=== PATIENT | male | born 1995 | race Caucasian/White ===

== ENCOUNTER 2021-03-29 13:37 | Emergency (ER) | payer OTHER ==
[~2021-03-29] VITALS: Ht 193 cm; Wt 91.8 kg
[2021-03-29 21:00] LABS: BASO % 0.4 % (0.0-1.0); EOS # 0.1 10^3/uL (0.0-0.5); EOS % 1.6 % (0.0-3.0); HEMATOCRIT 43.6 % (42.0-52.0); HEMOGLOBIN 14.5 g/dl (13.5-17.5); LYMPH # 1.6 10^3/uL (1.5-5.0); LYMPH % 22.4 % (24.0-44.0); MEAN CORPUSCULAR HEMOGLOBIN 30.3 pg (27.0-33.0); MEAN CORPUSCULAR HGB CONC 33.3 g/dl (32.0-36.5); MEAN CORPUSCULAR VOLUME 91.2 fl (80.0-96.0); MONO # 0.8 10^3/uL (0.0-0.8); MONO % 11.4 % (2.0-8.0); NEUTROPHILS # 4.6 10^3/uL (1.5-8.5); NEUTROPHILS % 63.8 % (36.0-66.0); PLATELET COUNT, AUTOMATED 237 10^3/uL (150-450); RED BLOOD COUNT 4.78 10^6/uL (4.30-6.10); WHITE BLOOD COUNT 7.3 10^3/uL (4.0-10.0)
--- NOTE | 2021-03-29 21:00 | REPVR ---
PROCEDURE INFORMATION: Exam: CT Abdomen And Pelvis Without Contrast Exam date and time: 03/29/2021 8:31 PM Age: 25 years old Clinical indication: Abdominal pain; Additional info: Flank pain/tenderness base liver TECHNIQUE: Imaging protocol: Computed tomography of the abdomen and pelvis without contrast. Radiation optimization: All CT scans at this facility use at least one of these dose optimization techniques: automated exposure control; mA and/or kV adjustment per patient size (includes targeted exams where dose is matched to clinical indication); or iterative reconstruction. COMPARISON: No relevant prior studies available. FINDINGS: Liver: Normal. No mass. Gallbladder and bile ducts: Normal. No calcified stones. No ductal dilation. Pancreas: Normal. No ductal dilation. Spleen: Normal. No splenomegaly. Adrenal glands: Normal. No mass. Kidneys and ureters: Normal. No hydronephrosis. Stomach and bowel: There is increased feces throughout the colon consistent with constipation. Appendix: No evidence of appendicitis. Intraperitoneal space: Unremarkable. No free air. No significant fluid collection. Vasculature: Unremarkable. No abdominal aortic aneurysm. Lymph nodes: Unremarkable. No enlarged lymph nodes. Urinary bladder: Unremarkable as visualized. Reproductive: Unremarkable as visualized. Bones/joints: Unremarkable. No acute fracture. Soft tissues: Unremarkable. IMPRESSION: There is increased feces throughout the colon consistent with constipation. Electronically signed by: Bryon Guan On 03/29/2021 20:59:30 PM
[2021-03-29 21:27] LABS: ALBUMIN 4.3 GM/DL (3.2-5.2); ALT/SGPT 27 U/L (12-78); BILIRUBIN,DIRECT 0.1 MG/DL (0.0-0.2); BILIRUBIN,TOTAL 0.6 MG/DL (0.2-1.0); LIPASE 75 U/L (73-393)
[2021-03-29 21:45] VITALS: BP 123/74
[2021-03-29 21:50] LABS: HEPATITIS B SURFACE ANTIGEN NEGATIVE (NEGATIVE)
[2021-03-29] MEDS ORDERED: MIRA3350 PO (22:04)
[2021-03-29 22:07] LABS: BLOOD UREA NITROGEN 13 MG/DL (7-18); CALCIUM LEVEL 9.6 MG/DL (8.5-10.1); CARBON DIOXIDE LEVEL 30 MEQ/L (21-32); CHLORIDE LEVEL 104 MEQ/L (98-107); CREATININE FOR GFR 1.12 MG/DL (0.70-1.30); GLOMERULAR FILTRATION RATE > 60.0 (>60); GLUCOSE, FASTING 89 MG/DL (70-100); POTASSIUM SERUM 4.2 MEQ/L (3.5-5.1); SODIUM LEVEL 140 MEQ/L (136-145)
[2021-03-29 22:17] LABS: HEPATITIS B CORE ANTIBODY IGM NEGATIVE (NEGATIVE)
[2021-03-29 22:20] LABS: HEPATITIS A ANTIBODY IGM NEGATIVE (NEGATIVE)
== END 2021-03-29 22:41 | disposition home or self-care (01) ==
LOC: M ED 13:37
DX: K59.00 Constipation, unspecified (principal)

== ENCOUNTER 2022-05-16 13:49 | Emergency (ER) | payer OTHER ==
[~2022-05-16] VITALS: Ht 193 cm; Wt 93.2 kg
[2022-05-16 13:49] VITALS: BP 132/67
[~2022-05-16 13:49] MED LIST: MIRA3350 PO
[2022-05-16] MEDS ORDERED: IBUP200C28 PO (14:17)
[2022-05-16] MEDS ORDERED: FLUORESCEIN OPHTH 1 MG STRIP OD ONE (14:25)
[2022-05-16] MEDS ORDERED: TETRACAINE 0.5% OPHTH SOLN 4ML OD ONE (14:25)
[2022-05-16] MEDS ORDERED: ERYTHROMYCIN OPHTH OINT OD ONE (14:45)
[2022-05-16] MEDS ORDERED: ERYT5OIN25 OS (14:50)
== END 2022-05-16 15:26 | disposition home or self-care (01) ==
LOC: M ED 13:49
DX: S05.01XA Injury of conjunctiva and corneal abrasion without foreign body, right eye, initial encounter (principal); F17.220 Nicotine dependence, chewing tobacco, uncomplicated; Y92.9 Unspecified place or not applicable; Y93.9 Activity, unspecified; Y99.0 Civilian activity done for income or pay; Z79.899 Other long term (current) drug therapy

== ENCOUNTER 2022-05-28 10:59 | Emergency (ER) | payer OTHER ==
[~2022-05-28] VITALS: Ht 193 cm; Wt 90.6 kg
[2022-05-28 10:59] VITALS: BP 136/81
[~2022-05-28 10:59] MED LIST changes: +ERYT5OIN25 OS; +IBUP200C28 PO
[2022-05-28] MEDS ORDERED: IBUP-1022 PO (12:54)
[2022-05-28] MEDS ORDERED: HYDR-3713 PO (12:54)
== END 2022-05-28 13:25 | disposition home or self-care (01) ==
LOC: M ED 10:59
DX: S02.612A Fracture of condylar process of left mandible, initial encounter for closed fracture (principal); W22.8XXA Striking against or struck by other objects, initial encounter; Y92.9 Unspecified place or not applicable; Y93.9 Activity, unspecified; Y99.9 Unspecified external cause status